=== PATIENT | male | born 1990 | race Caucasian/White ===

== ENCOUNTER 2018-04-11 09:59 | Emergency (ER) | payer OTHER, SELFPAY ==
[2018-04-11 10:08] VITALS: BP 147/93; PULSE 76; RESP 16; TEMP 36.8; O2SAT 98; BMI 31.1
--- NOTE | 2018-04-11 10:22 | DI.RAD.S_ITS ---
PROCEDURE: XR CHEST 1V INDICATIONS: chest pain TECHNIQUE: One view of the chest was acquired. COMPARISON: None. FINDINGS: Surgical changes and devices: None. Lungs and pleura: No pleural effusions or pneumothorax. Lungs are clear. Mediastinum: Mediastinal contours appear normal. Heart size is normal. Bones and chest wall: No suspicious bony lesions. Overlying soft tissues appear unremarkable. IMPRESSION: Portable chest within normal limits. Dictated by: Nato Villarreal M.D. on 04/11/2018 at 9:32 Approved by: Nato Villarreal M.D. on 04/11/2018 at 9:32
--- NOTE | 2018-04-11 10:26 | ED_ITS ---
HPI - Chest Pain General Chief Complaint: Chest Pain Stated Complaint: Chest Pain Time Seen by Provider: 04/11/18 10:10 Source: patient Mode of arrival: ambulatory Limitations: no limitations History of Present Illness HPI narrative: Patient is a 28-year-old male presents with left-sided chest pain. His is been ongoing for about the last 5 days. He actually started running and exercising more. When he is running and hiking he does not feel that pain. He denies any shortness of breath or heart palpitations. He does have a history of AFib from drinking. He has not had that in a long time. His had less tight pain woke him from his sleep. He is current lead chest pain- free. Recently diagnosed with celiac disease MD complaint: chest pain Related Data Allergies Allergy/AdvReac Type Severity Reaction Status Date / Time No Known Drug Allergies Allergy Verified 04/11/18 10:08 Review of Systems Review of Systems GENERAL: Denies chills, fatigue, malaise, fever, sweats, travel HEENT: Denies sinus pain, ear pain, sore throat, difficulty swallowing, neck pain RESPIRATORY: Denies dyspnea, cough, wheezing, hemoptysis, sputum. CARDIOVASCULAR: See HPI GASTROINTESTINAL: Denies nausea, vomiting, abdominal pain, diarrhea, constipation, melena. : Denies dysuria, frequency, incontinence, hematuria, urinary retention, flank pain. MUSCULOSKELETAL: Denies weakness, joint pain, or bony pain SKIN: No rash, no erythema, no pruritus NEUROLOGIC: Denies weakness, dizziness, headache, numbness, change in speech, confusion PSYCHIATRIC: No concerning psychosocial issues. 12 point review of systems is negative except for those stated above and HPI PFSH Medical History Healthy adult (Acute) Paroxysmal atrial fibrillation (Acute) Exam Initial Vital Signs Initial Vital Signs: Vital Signs Temperature 98.3 F 04/11/18 10:08 Pulse Rate 76 04/11/18 10:08 Respiratory Rate 16 04/11/18 10:08 Blood Pressure 147/93 H 04/11/18 10:08 Pulse Oximetry 98 04/11/18 10:08 GENERAL: Well-appearing slightly overweight male no acute distress HEENT: Head atraumatic,EOMI, pupils reactive, face symmetric, CARDIOVASCULAR: Regular rate and rhythm without murmurs, rubs or gallops. RESPIRATORY: Breath sounds equal bilaterally, no wheezes rales or rhonchi. ABDOMEN: Soft, nontender. Normoactive bowel sounds all 4 quadrants. No guarding or rebound. : No CVA tenderness EXTREMITIES: Normal range of motion, no clubbing or edema. Neurovascularly intact NEUROLOGICAL: Alert and oriented x4.Normal gait and speech. Cranial nerves II through XII grossly intact. SKIN: Warm, dry, no laceration, no petechiae, no rashes or lesions. Scores HEART Score Heart Score history: Slightly Suspicious Heart Score EKG: Normal Heart Score Age: < 45 years old Heart Score risk factors: No known risk factors Heart Score troponin: < or = to normal limit Heart Score Total: 0 Course Orders Ordered: ED Orders 04/11/18 10:20 Complete Blood Count AUTO DIFF Stat Comprehensive Metabolic Panel Stat Lipase Stat Troponin & CK Cardiac Panel Stat 04/11/18 10:22 XR chest 1V Stat Discontinued Medications Aspirin (Aspirin Chew) 324 mg PO NOW ONE Stop: 04/11/18 10:23 Last Admin: 04/11/18 10:36 Dose: 324 mg Vital Signs - 8 hr 04/11/18 10:08 04/11/18 11:21 04/11/18 11:28 Temperature 98.3 F Pulse Rate 76 55 L 65 Respiratory Rate 16 20 20 Blood Pressure 147/93 H 138/81 Blood Pressure [Right Arm] 138/81 Pulse Oximetry 98 98 99 MDM - Chest Pain Lab Data Attestation: I reviewed the patient's lab results. Result diagrams: 04/11/18 10:20 04/11/18 10:20 Lab Results 04/11/18 04/11/18 Range/Units 10:20 10:20 WBC 5.9 (4.5-11.0) X10^3/uL RBC 5.04 (4.5-5.9) X10^6/uL Hgb 15.5 (13.5-17.5) g/dL Hct 43.4 (41-53) % MCV 86.1 (80-100) fL MCH 30.8 (26-34) PG MCHC 35.8 (30-36) % RDW 12.8 (11.6-14.8) % Plt Count 236 (150-400) X10^3/uL Neut % (Auto) 59.4 (50-75) % Lymph % (Auto) 29.0 (25-40) % Oliver % (Auto) 9.7 (3-14) % Eos % (Auto) 1.0 L (2-4) % Baso % (Auto) 0.9 (0-2) % Neut # (Auto) 3500 (8924-5823) /uL Sodium 142 (137-145) mmol/L Potassium 4.1 (3.4-5.1) mmol/L Chloride 102 (98-107) mmol/L Carbon Dioxide 28 (22-32) mmol/L BUN 18 (9-20) mg/dL Creatinine 0.90 (0.66-1.25) mg/dL Estimated GFR > 60.0 (>60) mL/min BUN/Creatinine Ratio 20.0 (6-22) Glucose 98 (70-100) mg/dL Calcium 9.6 (8.4-10.2) mg/dL Total Bilirubin 0.9 (0.2-1.3) mg/dL AST 23 (17-59) IU/L ALT 31 (21-72) IU/L Alkaline Phosphatase 34 L (38-126) U/L Total Creatine Kinase 70 (55-170) U/L CK-MB (CK-2) TNP CK-MB (CK-2) Rel Index TNP Troponin I < 0.012 (0.01-0.034) ng/mL Total Protein 7.5 (6.3-8.2) g/dL Albumin 4.6 (3.5-5.0) g/dL Globulin 2.9 (1.7-4.1) g/dL Albumin/Globulin Ratio 1.6 (1.0-2.8) Lipase 27 (23-300) U/L Imaging Data Chest x-ray: Radiologist's impression: PROCEDURE: XR CHEST 1V INDICATIONS: chest pain TECHNIQUE: One view of the chest was acquired. COMPARISON: None. FINDINGS: Surgical changes and devices: None. Lungs and pleura: No pleural effusions or pneumothorax. Lungs are clear. Mediastinum: Mediastinal contours appear normal. Heart size is normal. Bones and chest wall: No suspicious bony lesions. Overlying soft tissues appear unremarkable. IMPRESSION: Portable chest within normal limits. Dictated by: Nato Villarreal M.D. on 04/11/2018 at 9:32 ECG Data Attestation: I personally reviewed and interpreted this ECG as follows: Prior ECG tracings: not available for review Interpretation: Sinus rhythm rate 71 T-wave inversion noted in lead [address] changes Discharge Plan Departure Patient Disposition: Home Clinical Impression: Atypical chest pain Discharge Date/Time: 04/11/18 11:30 Interventions: ED Discharge Assessment Last Done: 04/11/18 11:28 Instructions: DI for Atypical Chest Pain Activity Restrictions/Additional Instructions: *You have been diagnosed with atypical chest pain *What to do: Blood work and x-ray within normal limits, if still having issues may require further testing such as stress testing with your primary care provider *Continue to take medications as directed *Follow up with your primary care provider in 2-3 days *Return to ER if you should have any new, worsening or concerning symptoms Referrals: Jacinta Montano ND [Primary Care Provider] -
[2018-04-11 10:31] LABS: Add Manual Diff / Slide Review NO; Basophils Percent Auto 0.9 % (0-2); Hematocrit 43.4 % (41-53); Hemoglobin 15.5 g/dL (13.5-17.5); Mean Corpuscular HGB Conc 35.8 % (30-36); Mean Corpuscular Hemoglobin 30.8 PG (26-34); Mean Corpuscular Volume 86.1 fL (80-100); Monocytes Percent Auto 9.7 % (3-14); Neutrophils Absolute Auto 3500 /uL (3000-5900); Neutrophils Percent Auto 59.4 % (50-75); Platelet Count 236 X10^3/uL (150-400); Red Blood Cell Count 5.04 X10^6/uL (4.5-5.9); Red Cell Distribution Width 12.8 % (11.6-14.8); White Blood Cell Count 5.9 X10^3/uL (4.5-11.0)
[2018-04-11] MEDS: ASPIRIN 81 MG TAB 324 MG PO (10:36)
[2018-04-11 10:45] LABS: Alanine Aminotransferase 31 IU/L (21-72); Albumin 4.6 g/dL (3.5-5.0); Albumin Globulin Ratio 1.6 (1.0-2.8); Alkaline Phosphatase 34 U/L (38-126); Aspartate Aminotransferase 23 IU/L (17-59); Bilirubin Total 0.9 mg/dL (0.2-1.3); Blood Urea Nitrogen 18 mg/dL (9-20); Calcium 9.6 mg/dL (8.4-10.2); Carbon Dioxide 28 mmol/L (22-32); Chloride 102 mmol/L (98-107); Creatine Kinase 70 U/L (55-170); Estimated Glomerular Filt Rate > 60.0 mL/min (>60); Globulin 2.9 g/dL (1.7-4.1); Glucose 98 mg/dL (70-100); HEMOLYSIS < 15 (0-50); Lipase 27 U/L (23-300); Potassium 4.1 mmol/L (3.4-5.1); Sodium 142 mmol/L (137-145); Total Protein 7.5 g/dL (6.3-8.2)
[2018-04-11 10:56] LABS: Troponin I < 0.012 ng/mL (0.01-0.034)
[2018-04-11 11:21] VITALS: BP 138/81; PULSE 55; RESP 20; O2SAT 98
[2018-04-11 11:28] VITALS: BP 138/81; PULSE 65; RESP 20; O2SAT 99
== END 2018-04-11 11:30 | disposition home or self-care (01) ==
PROVIDERS: Emergency Provider Emergency Medicine; PCP Naturopath
DX: R07.89 Other chest pain (principal)
CPT/HCPCS: 71045; 80053; 82550; 83690; 84484; 85025; 93005; 99282; 99285

== ENCOUNTER 2018-10-18 19:27 | Emergency (ER) | payer OTHER, MEDICAID, SELFPAY ==
[2018-10-18 19:30] VITALS: BP 154/93; PULSE 88; RESP 18; TEMP 36.7; O2SAT 96; BMI 31.4
--- NOTE | 2018-10-18 19:49 | DI.RAD.S_ITS ---
PROCEDURE: XR CHEST 1V INDICATIONS: chest pain TECHNIQUE: One view of the chest was acquired. COMPARISON: [facility], CR, XR CHEST 1V, 04/11/2018, 10:27. FINDINGS: Surgical changes and devices: None. Lungs and pleura: There is mild prominence of pulmonary vasculature. There are mild bilateral perihilar and bibasilar linear opacities consistent with atelectasis. No focal pulmonary consolidations are identified. No pleural effusions or pneumothorax. Mediastinum: Mediastinal contours appear normal. Heart size is normal. Bones and chest wall: No suspicious bony lesions. Overlying soft tissues appear unremarkable. IMPRESSION: Mild perihilar and bibasilar atelectasis. No focal pulmonary consolidations consistent with pneumonia. Dictated by: Laron Cardenas M.D. on 10/18/2018 at 23:08 Approved by: Laron Cardenas M.D. on 10/18/2018 at 23:11
--- NOTE | 2018-10-18 19:53 | PC.NURSE ---
Pt reports start of tingling pain starting in left wrist. A few days ago, increased to right arm. reports pain/numbness lasts about a minute but happens multiple times throughout each days. Denies any weakness in bilateral arms/hands.
[2018-10-18 19:58] LABS: Add Manual Diff / Slide Review NO; Basophils Absolute Auto 100 /uL (0-100); Basophils Percent Auto 0.8 % (0-2); Eosinophils Absolute Auto 100 /uL (0-450); Eosinophils Percent Auto 1.1 % (2-4); Hemoglobin 14.8 g/dL (13.5-17.5); Lymphocytes Absolute Auto 2200 /uL (1100-4500); Lymphocytes Percent Auto 31.4 % (25-40); Mean Corpuscular HGB Conc 35.2 % (30-36); Mean Corpuscular Hemoglobin 30.4 PG (26-34); Mean Corpuscular Volume 86.4 fL (80-100); Monocytes Absolute Auto 800 /uL (0-900); Monocytes Percent Auto 10.9 % (3-14); Neutrophils Absolute Auto 4000 /uL (1500-7000); Neutrophils Percent Auto 55.8 % (50-75); Platelet Count 269 X10^3/uL (150-400); Red Blood Cell Count 4.86 X10^6/uL (4.5-5.9); Red Cell Distribution Width 12.4 % (11.6-14.8); White Blood Cell Count 7.1 X10^3/uL (4.5-11.0)
[2018-10-18 20:00] VITALS: BP 130/90; PULSE 64; RESP 22; O2SAT 97
--- NOTE | 2018-10-18 20:00 | ED_ITS ---
HPI - Chest Pain General Chief Complaint: Chest Pain Stated Complaint: CHEST PAIN NUMBNESS OF ARMS Time Seen by Provider: 10/18/18 19:34 Source: patient Mode of arrival: ambulatory Limitations: no limitations History of Present Illness HPI narrative: Patient is a 28-year-old male presents left-sided chest pain. He has a really been off and on for last 6 months. It is typically in 1 spot not reproducible with movement or palpation. It comes and lasts for few seconds. He has intermittently started having pain in both arms from his elbows down to his wrist. Today his left 1 was worse than normal. 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 However he said the pain from elbow down to his wrist was worse today and he was having chest discomfort so decided to come and get checked out. He states he does have a history of holiday heart he was cardioverted when he was 18 and no problem since then. He also was recently diagnosed with celiac disease and has completely cut out gluten. He says those symptoms have overall gone away. MD complaint: chest pain Duration: intermittent Onset: during rest and during exertion Pain location: left chest Severity: mild Related Data Allergies Allergy/AdvReac Type Severity Reaction Status Date / Time No Known Drug Allergies Allergy Verified 04/16/18 14:26 Review of Systems Review of Systems GENERAL: Denies chills, fatigue, malaise, fever, sweats, travel HEENT: Denies sinus pain, ear pain, sore throat, difficulty swallowing, neck pain RESPIRATORY: Denies dyspnea, cough, wheezing, hemoptysis, sputum. CARDIOVASCULAR: See HPI GASTROINTESTINAL: Denies nausea, vomiting, abdominal pain, diarrhea, constipation, melena. : Denies dysuria, frequency, incontinence, hematuria, urinary retention, flank pain. MUSCULOSKELETAL: Denies weakness, joint pain, or bony pain SKIN: No rash, no erythema, no pruritus NEUROLOGIC: Denies weakness, dizziness, headache, numbness, change in speech, confusion PSYCHIATRIC: No concerning psychosocial issues. 12 point review of systems is negative except for those stated above and HPI [facility] Medical History Healthy adult (Acute) Paroxysmal atrial fibrillation (Acute) Social History (System 04/16/18 @ 14:26 by Vale Lauren) Smoking Status: Never smoker Social History (Updated 10/18/18 @ 20:00 by Echo Li DO) marital status: Smoking Status: Never smoker alcohol intake: current substance use type: does not use Exam Initial Vital Signs Initial Vital Signs: Vital Signs Temperature 98.0 F 10/18/18 19:30 Pulse Rate 88 10/18/18 19:30 Respiratory Rate 18 10/18/18 19:30 Blood Pressure 154/93 H 10/18/18 19:30 Pulse Oximetry 96 10/18/18 19:30 GENERAL: Well-appearing, well-nourished and in no acute distress. HEENT: Head atraumatic,EOMI, pupils reactive, face symmetric CARDIOVASCULAR: Regular rate and rhythm without murmurs, rubs or gallops. RESPIRATORY: Breath sounds equal bilaterally, no wheezes rales or rhonchi. ABDOMEN: Soft, nontender. Normoactive bowel sounds all 4 quadrants. No guarding or rebound. : No CVA tenderness EXTREMITIES: Normal range of motion, no clubbing or edema. Neurovascularly intact NEUROLOGICAL: Alert and oriented x4.Normal gait and speech. Cranial nerves II through XII grossly intact. stitch burnisher strength equal bilaterally able to push him full equal. SKIN: Warm, dry, no laceration, no petechiae, no rashes or lesions. Scores HEART Score Heart Score history: Slightly Suspicious Heart Score EKG: Normal Heart Score Age: < 45 years old Heart Score risk factors: No known risk factors Heart Score troponin: < or = to normal limit Heart Score Total: 0 PERC Score Age greater than or equal to 50 years: No Heart rate greater than or equal to 100 bpm: No Room Air O2 Sat less than 95%: No Unilateral leg swelling: No Recent trauma or surgery: No Hemoptysis: No Prior PE or DVT: No Hormone Use: No Total PERC Score: 0 Wells' Criteria for PE Clinical signs and symptoms of PE: No PE is #1 Dx or equally likely: No Heart rate > 100: No Immobilization at least 3 days or surg in previous 4 weeks: No History of PE or DVT: No Hemoptysis: No Malignancy w/Treatment within 6 months or palliative: No Wells' PE Score total: 0 Course Orders Ordered: ED Orders 10/18/18 19:35 EKG-12 Lead Stat 10/18/18 19:45 Complete Blood Count AUTO DIFF Stat Comprehensive Metabolic Panel Stat D Dimer Stat Lipase Stat Troponin & CK Cardiac Panel Stat 10/18/18 19:49 XR chest 1V Stat Discontinued Medications Ketorolac Tromethamine (Toradol) 30 mg IV NOW ONE Stop: 10/18/18 19:50 Last Admin: 10/18/18 20:02 Dose: 30 mg Vital Signs - 8 hr 10/18/18 20:00 10/18/18 20:30 10/18/18 21:09 Pulse Rate 64 71 70 Respiratory Rate 22 15 17 Blood Pressure 121/78 Blood Pressure [Left Arm] 130/90 128/81 Pulse Oximetry 97 96 96 MDM - Chest Pain Lab Data Attestation: I reviewed the patient's lab results. Result diagrams: 10/18/18 19:45 10/18/18 19:45 Lab Results 10/18/18 10/18/18 10/18/18 Range/Units 19:45 19:45 19:45 WBC 7.1 (4.5-11.0) X10^3/uL RBC 4.86 (4.5-5.9) X10^6/uL Hgb 14.8 (13.5-17.5) g/dL Hct 42.0 (41-53) % MCV 86.4 (80-100) fL MCH 30.4 (26-34) PG MCHC 35.2 (30-36) % RDW 12.4 (11.6-14.8) % Plt Count 269 (150-400) X10^3/uL Neut % (Auto) 55.8 (50-75) % Lymph % (Auto) 31.4 (25-40) % Chase % (Auto) 10.9 (3-14) % Eos % (Auto) 1.1 L (2-4) % Baso % (Auto) 0.8 (0-2) % Neut # (Auto) 4000 (0288-2661) /uL Lymph # (Auto) 2200 (5432-7237) /uL Chase # (Auto) 800 (0-900) /uL Eos # (Auto) 100 (0-450) /uL Baso # (Auto) 100 (0-100) /uL D-Dimer < 200 (<230) ng/mL Sodium 138 (137-145) mmol/L Potassium 3.7 (3.4-5.1) mmol/L Chloride 102 (98-107) mmol/L Carbon Dioxide 25 (22-32) mmol/L BUN 18 (9-20) mg/dL Creatinine 0.90 (0.66-1.25) mg/dL Estimated GFR > 60.0 (>60) mL/min BUN/Creatinine Ratio 20.0 (6-22) Glucose 116 H (70-100) mg/dL Calcium 9.4 (8.4-10.2) mg/dL Total Bilirubin 0.6 (0.2-1.3) mg/dL AST 26 (17-59) IU/L ALT 41 (21-72) IU/L Alkaline Phosphatase 43 (38-126) U/L Total Creatine Kinase 217 H (55-170) U/L CK-MB (CK-2) < 0.22 (<2.37) ng/mL CK-MB (CK-2) Rel Index 0.1 L (1.5-5.0) % Troponin I < 0.012 (0.01-0.034) ng/mL Total Protein 7.4 (6.3-8.2) g/dL Albumin 4.6 (3.5-5.0) g/dL Globulin 2.8 (1.7-4.1) g/dL Albumin/Globulin Ratio 1.6 (1.0-2.8) Lipase 40 (23-300) U/L Urine Dip Bedside Urine Glucose Negative Bedside Urine Bilirubin - Negative Bedside Urine Ketone - Negative Urine Specific [place] 1.030 Bedside Urine Occult Blood - Negative Bedside Urine pH 6.0 Bedside Urine Protein - Negative Bedside Urine Urobilinogen - Negative Bedside Urine Nitrite - Negative Bedside Urine Leukocytes - Negative Esterase Imaging Data Chest x-ray: Radiologist's impression: PROCEDURE: XR CHEST 1V INDICATIONS: chest pain TECHNIQUE: One view of the chest was acquired. COMPARISON: [facility], CR, XR CHEST 1V, 04/11/2018, 10:27. FINDINGS: Surgical changes and devices: None. Lungs and pleura: There is mild prominence of pulmonary vasculature. There are mild bilateral perihilar and bibasilar linear opacities consistent with atelectasis. No focal pulmonary consolidations are identified. No pleural effusions or pneumothorax. Mediastinum: Mediastinal contours appear normal. Heart size is normal. Bones and chest wall: No suspicious bony lesions. Overlying soft tissues appear unremarkable. IMPRESSION: Mild perihilar and bibasilar atelectasis. No focal pulmonary consolidations consistent with pneumonia. Dictated by: Laron Cardenas M.D. on 10/18/2018 at 23:08 Approved by: Laron Cardenas M.D. on 10/18/2018 at 23:11 ECG Data Attestation: I personally reviewed and interpreted this ECG as follows: Prior ECG tracings: available for review Interpretation: Normal sinus rhythm rate [address] changes no T-wave inversions pure interval 152 QRS 90 MDM Narrative Medical decision making narrative: The patient is low risk for any cardiac problems. His pain and tingling on going from his elbows to his wrists bilaterally as not seem like stroke. Low risk for PE well. At this time patient can be discharged with outpatient follow-up. Discharge Plan Departure Patient Disposition: Home Clinical Impression: Atypical chest pain Discharge Date/Time: 10/18/18 21:13 Interventions: ED Discharge Assessment Last Done: 10/18/18 21:09 Instructions: DI for Atypical Chest Pain Activity Restrictions/Additional Instructions: *You have been diagnosed with atypical chest pain *What to do: At this time blood work is reassuring. Unlikely to be blood clot, unlikely to be cardiac however he used still may require further test here primary care provider *Continue to take medications as directed *Follow up with your primary care provider in 2-3 days *Return to ER if you should have increasing chest pain, shortness of breath or any new, worsening or concerning symptoms Referrals: Jacinta Montano ND [Primary Care Provider] -
[2018-10-18] MEDS: KETOROLAC 60 MG/2 ML VIAL 30 MG IV (20:02)
[2018-10-18 20:03] LABS: Alanine Aminotransferase 41 IU/L (21-72); Albumin 4.6 g/dL (3.5-5.0); Albumin Globulin Ratio 1.6 (1.0-2.8); Alkaline Phosphatase 43 U/L (38-126); Aspartate Aminotransferase 26 IU/L (17-59); Bilirubin Total 0.6 mg/dL (0.2-1.3); Blood Urea Nitrogen 18 mg/dL (9-20); Calcium 9.4 mg/dL (8.4-10.2); Carbon Dioxide 25 mmol/L (22-32); Chloride 102 mmol/L (98-107); Creatine Kinase 217 U/L (55-170); Estimated Glomerular Filt Rate > 60.0 mL/min (>60); Globulin 2.8 g/dL (1.7-4.1); Glucose 116 mg/dL (70-100); HEMOLYSIS < 15 (0-50); Lipase 40 U/L (23-300); Potassium 3.7 mmol/L (3.4-5.1); Sodium 138 mmol/L (137-145); Total Protein 7.4 g/dL (6.3-8.2)
[2018-10-18 20:04] LABS: D Dimer < 200 ng/mL (<230)
[2018-10-18 20:14] LABS: Troponin I < 0.012 ng/mL (0.01-0.034)
[2018-10-18 20:22] LABS: CKMB % Relative Index 0.1 % (1.5-5.0); Creatine Kinase MB < 0.22 ng/mL (<2.37)
[2018-10-18 20:30] VITALS: BP 128/81; PULSE 71; RESP 15; O2SAT 96
[2018-10-18 21:09] VITALS: BP 121/78; PULSE 70; RESP 17; O2SAT 96
== END 2018-10-18 21:13 | disposition home or self-care (01) ==
PROVIDERS: Emergency Provider Emergency Medicine; PCP Naturopath
DX: R07.89 Other chest pain (principal); R20.0 Anesthesia of skin; M79.602 Pain in left arm; M79.601 Pain in right arm
CPT/HCPCS: 36415; 36591; 71045; 80053; 81003; 82550; 82553; 83690; 84484; 85025; 85379; 93005; 96374; 99282; 99285; J1885

== ENCOUNTER → 2020-08-10 07:02 | Outpatient (CLI) | payer OTHER, MEDICAID, SELFPAY ==
[2020-08-10 08:00] LABS: Hemoglobin A1C% w Est Avg Glu 5.2 % (4.0-6.0)
[2020-08-10 08:05] LABS: Alanine Aminotransferase 41 IU/L (<50); Albumin 4.5 g/dL (3.5-5.0); Albumin Globulin Ratio 1.6 (1.0-2.8); Alkaline Phosphatase 33 U/L (38-126); Aspartate Aminotransferase 26 IU/L (17-59); BUN Creatinine Ratio 23.9 (6-22); Bilirubin Total 0.6 mg/dL (0.2-1.3); Blood Urea Nitrogen 22 mg/dL (9-20); Calcium 8.9 mg/dL (8.4-10.2); Carbon Dioxide 29 mmol/L (22-32); Chloride 103 mmol/L (98-107); Cholesterol 160 mg/dL (140-199); Estimated Glomerular Filt Rate > 60.0 mL/min (>60); Globulin 2.9 g/dL (1.7-4.1); Glucose 103 mg/dL (70-100); HDL Cholesterol 35 mg/dL (40-60); HEMOLYSIS < 15 (0-50); LDL Cholesterol Calculated 91 mg/dL (<100); Potassium 4.4 mmol/L (3.4-5.1); Sodium 137 mmol/L (137-145); Total Protein 7.4 g/dL (6.3-8.2); Triglycerides 168 mg/dL (35-150)
[2020-08-10 09:07] LABS: TSH w/ Reflex to FT4 1.08 uIU/mL (0.47-4.68)
== END ==
PROVIDERS: PCP Family Medicine; Referring Provider Family Medicine; Visit Provider Family Medicine
DX: I10 Essential (primary) hypertension (principal); R07.9 Chest pain, unspecified; Z13.1 Encounter for screening for diabetes mellitus; Z13.220 Encounter for screening for lipoid disorders; Z13.29 Encounter for screening for other suspected endocrine disorder; Z76.89 Persons encountering health services in other specified circumstances
CPT/HCPCS: 36415; 80053; 80061; 83036; 84443

== ENCOUNTER → 2020-09-13 11:57 | Outpatient (CLI) | payer OTHER, MEDICAID, SELFPAY ==
[2020-09-13 14:09] LABS: COVID19 -Nasal RAPID Negative (Negative)
== END ==
PROVIDERS: PCP Family Medicine; Visit Provider Nurse Practitioner
DX: Z01.812 Encounter for preprocedural laboratory examination (principal); Z20.822 Contact with and (suspected) exposure to COVID-19
CPT/HCPCS: 87635

== ENCOUNTER → 2020-09-14 08:11 | Outpatient (CLI) | payer OTHER, MEDICAID, SELFPAY ==
--- NOTE | 2020-09-14 09:06 | PM.TREADMILL ---
Cardiac Stress Test Report Referral & Results Date Patient Seen: 09/14/20 Time Patient Seen: 08:45 Requesting provider: Claude Browning Indication: Chest discomfort Rest ECG: Normal rate. No ST deviations. Frequent PAC/PVC Procedure Note: Today following both written and verbal informed consent, the patient was exercised according to a standard [facility] protocol. The patient exercised for a total of 10 minutes 16 seconds achieving a maximum heart rate of 168. Patient's maximum systolic blood pressure was 162. This was an estimated 12.8 METs. Normal hemodynamic response to exercise. Mild exercise impairment, but lower extremity cramping limited performance (BUCKY +20% on active scale). Frequent PACs/PVC at rest, but frequency decreased with exertion. Abnormal beats were markedly more frequent at rest after exercise with abnormal beats occupying every 4th to 5th beat. No other EKG changes. No signs or symptoms of angina. Presenting symptom not reproduced on exercise. Impression: Low probability for ischemia. Substantially arrhythmia, but unlikely to be responsible for the patient's current complaint. Consider outpatient paymaster of purses if further workup is clinically suggested. Please note: Actual ECG tracings can be found in the PACS system.
== END ==
PROVIDERS: PCP Family Medicine; Referring Provider Family Medicine; Visit Provider Family Medicine
DX: R07.89 Other chest pain (principal); I48.0 Paroxysmal atrial fibrillation; I10 Essential (primary) hypertension
CPT/HCPCS: 93016; 93017; 93018

== ENCOUNTER → 2020-11-10 07:33 | Outpatient (CLI) | payer OTHER, MEDICAID, SELFPAY ==
[2020-11-10] MEDS: COVID-19 VACC #1, MRNA(MOD) 100 MCG/0.5 ML VIAL IM (07:41)
== END ==
PROVIDERS: PCP Family Medicine; Visit Provider Internal Medicine
DX: Z23 Encounter for immunization (principal)
CPT/HCPCS: 0011A; 91301

== ENCOUNTER → 2020-12-08 07:33 | Outpatient (CLI) | payer OTHER, SELFPAY ==
[2020-12-08] MEDS: COVID-19 VACC #2, MRNA(MOD) 100 MCG/0.5 ML VIAL IM (07:51)
== END ==
PROVIDERS: PCP Family Medicine; Visit Provider Internal Medicine
DX: Z23 Encounter for immunization (principal)
CPT/HCPCS: 0012A; 91301

== ENCOUNTER → 2021-04-20 11:15 | Outpatient (CLI) | payer OTHER, SELFPAY ==
--- NOTE | 2021-04-20 11:16 | DI.RAD.S_ITS ---
PROCEDURE: FL BARIUM SWALLOW W AIR COMPARISON: None. INDICATIONS: Progressive reflux symptoms FINDINGS: Gas crystals followed by thick barium were administered to the patient orally. Multiple spot images of the esophagus were performed. There is normal mucosa with no intrinsic or extrinsic mass. Normal peristalsis is seen. No gastroesophageal reflux is seen despite provocative maneuvers. The patient was able to swallow a barium pill without difficulty. IMPRESSION: Normal barium swallow. Dictated by: Elmer Flower M.D. on 04/20/2021 at 12:29 Approved by: Elmer Flower M.D. on 04/22/2021 at 13:10
== END ==
PROVIDERS: PCP Family Medicine; Referring Provider Family Medicine; Visit Provider Family Medicine
DX: K21.9 Gastro-esophageal reflux disease without esophagitis (principal)
CPT/HCPCS: 74221

== ENCOUNTER → 2021-04-22 16:14 | Outpatient (CLI) | payer OTHER, SELFPAY ==
--- NOTE | 2021-04-22 16:15 | DI.RAD.S_ITS ---
PROCEDURE: XR CHEST 2V INDICATIONS: Chest pain, exposure to asbestos TECHNIQUE: 2 views of the chest were acquired. COMPARISON: None. FINDINGS: Surgical changes and devices: None. Lungs and pleura: Lungs are clear. No pleural effusions or pneumothorax. Mediastinum: Mediastinal contours are normal. Heart size is normal. Bones and chest wall: No suspicious bony abnormalities. Soft tissues appear unremarkable. IMPRESSION: No acute cardiopulmonary process demonstrated radiographically. Dictated by: Jett Benoit M.D. on 04/22/2021 at 16:43 Approved by: Jett Benoit M.D. on 04/22/2021 at 16:43
[2021-04-22 17:00] LABS: Alanine Aminotransferase 62 IU/L (<50); Albumin 4.7 g/dL (3.5-5.0); Albumin Globulin Ratio 1.6 (1.0-2.8); Alkaline Phosphatase 40 U/L (38-126); Aspartate Aminotransferase 32 IU/L (17-59); BUN Creatinine Ratio 21.5 (6-22); Bilirubin Total 0.4 mg/dL (0.2-1.3); Blood Urea Nitrogen 20 mg/dL (9-20); Calcium 9.3 mg/dL (8.4-10.2); Carbon Dioxide 27 mmol/L (22-32); Chloride 104 mmol/L (98-107); Estimated Glomerular Filt Rate > 60.0 mL/min (>60); Glucose 84 mg/dL (70-100); HEMOLYSIS < 15 (0-50); Potassium 4.2 mmol/L (3.4-5.1); Sodium 140 mmol/L (137-145); Total Protein 7.7 g/dL (6.3-8.2)
== END ==
PROVIDERS: PCP Family Medicine; Referring Provider Registered Nurse; Visit Provider Registered Nurse
DX: R07.9 Chest pain, unspecified (principal); I10 Essential (primary) hypertension; Z77.090 Contact with and (suspected) exposure to asbestos
CPT/HCPCS: 36415; 71046; 80053

== ENCOUNTER → 2021-06-16 16:07 | Outpatient (CLI) | payer OTHER, SELFPAY ==
[2021-06-16 18:06] LABS: Adenovirus F 40/41 Not Detected (Not Detect); Astrovirus Not Detected (Not Detect); Campylobacter Not Detected (Not Detect); Clostridium difficile toxin AB Not Detected (Not Detect); Cryptosporidium Not Detected (Not Detect); Cyclospora cayetanensis Not Detected (Not Detect); Entamoeba histolytica Not Detected (Not Detect); Enteroaggregative E.coli Not Detected (Not Detect); Enteropathogenic E.coli Not Detected (Not Detect); Enterotoxigenic E.coli It/st Not Detected (Not Detect); Giardia lamblia Not Detected (Not Detect); Norovirus GI/GII Not Detected (Not Detect); Plesiomonsa shigelloides Not Detected (Not Detect); Rotavirus A Not Detected (Not Detect); Salmonella Not Detected (Not Detect); Sapovirus Not Detected (Not Detect); Shiga-like toxin-prod E.coli Not Detected (Not Detect); Shigella/Enteroinvasive E.coli Not Detected (Not Detect); Vibrio Not Detected (Not Detect); Vibrio cholerae Not Detected (Not Detect); Yersinia enterocolitica Not Detected (Not Detect)
== END ==
PROVIDERS: PCP Family Medicine; Referring Provider Physician Assistant; Visit Provider Physician Assistant
DX: R19.7 Diarrhea, unspecified (principal)
CPT/HCPCS: 87507

== ENCOUNTER → 2021-09-20 14:21 | Outpatient (CLI) | payer OTHER, SELFPAY ==
[2021-09-20 16:25] LABS: COVID19 -Nasal RAPID Negative (Negative)
== END ==
PROVIDERS: PCP Family Medicine; Visit Provider Physician Assistant
DX: Z20.822 Contact with and (suspected) exposure to COVID-19 (principal)
CPT/HCPCS: 87635

== ENCOUNTER → 2021-12-15 15:50 | Outpatient (CLI) | payer OTHER, SELFPAY ==
--- NOTE | 2021-12-15 | DI.ECHO.S_ITS ---
[place] [facility]---------+ [facility] +---------+ : : [address] : : : : [id number] : : : : Phone: [phone]+ Echocardiogram Report + + :Name: GURPREET KATHLEEN Study Date: 12/15/2021 Height: 71 in : :[facility] ReadingLocation: Weight: 233 lb : : Gender: Male BSA: 2.3 m2 : :: 1990 Age: 31 yrs BP: 143/95 mmHg: :Reason For Study: Arrhythmia, PVCs : :Ordering Physician: BRYANT, : :KAIDEN Performed By: Paulie Herndon : :Referring: KAIDEN CHOWDHURY : + + Interpretation Summary 1) Normal left ventricular size, thickness, wall motion, and systolic function (EF 55-60%). 2) Normal right ventricular size and function. 3) No significant valvular abnormalities. 4) No prior Echo available for comparison. Procedure: A two-dimensional transthoracic echocardiogram with color flow and Doppler was performed. The study quality was technically adequate. There is no prior echocardiogram noted for this patient. Left Ventricle: The left ventricle is normal in size and wall thickness. Left ventricular systolic function is normal. The ejection fraction is estimated to be 55-60%. There are no focal wall motion abnormalities. Diastolic parameters suggest probable normal left ventricular diastolic function and normal filling pressures. Right Ventricle: The right ventricle is normal in size and function. Atria: Both atria are normal in size. The interatrial septum grossly appears intact with no obvious evidence for an atrial septal defect. Mitral Valve: The mitral valve is normal in structure and function. There is trace mitral regurgitation. Aortic Valve: The aortic valve is normal in structure and function. There is no aortic valve stenosis. No aortic regurgitation is present. Tricuspid Valve: The tricuspid valve is normal in structure and function. There is a trace or physiologic amount of tricuspid regurgitation. Pulmonary artery pressures cannot be estimated because of the lack of a measurable TR jet velocity. Pulmonic Valve: The pulmonic valve is normal in structure and function. There is no pulmonic valvular regurgitation. Great Vessels: The aortic root is normal size. The dimensions of the ascending aorta are normal. The IVC is of normal diameter and collapses greater than 50% with a sniff. This suggests a low right atrial pressure of 3 mm Hg. Pericardium/ Pleura There is no pericardial effusion. There is no pleural effusion. MMode/2D Measurements & Calculations LVIDd: 5.4 cm LVOT diam: 2.6 cm LVIDs: 3.8 cm Ao root diam: 3.8 cm FS: 29.6 % asc Aorta Diam: 3.3 cm IVSd: 1.1 cm LVPWd: 0.90 cm LV smalls. diameter/BSA (cm/m^2): 2.4 LV sys. diameter/BSA (cm/m^2): 1.7 LA dimension: 3.5 cm RA long axis: 5.3 cm LA A2 area: 18.4 cm2 LA A4 area: 16.3 cm2 LA length (vol): 5.1 cm LA vol: 50.2 ml LA vol index: 22.3 ml/m2 TAPSE_phl: 2.4 cm Doppler Measurements & Calculations Ao V2 max: 100.0 cm/sec LVOT Max Rufino: 84.2 cm/sec Ao V2 mean: 73.6 cm/sec LV V1 max P.8 mmHg Ao max P.0 mmHg LV V1 VTI: 16.7 cm Ao mean P.0 mmHg PATY(I,D): 4.4 cm2 Ao V2 VTI: 20.0 cm PATY(V,D): 4.5 cm2 sev ratio: 0.83 PATY indexed to BSA (cm^2/m^2): 2.0 MV E max rufino: 91.7 cm/sec SV(LVOT): 88.7 ml MV A max rufino: 54.0 cm/sec MV E/A: 1.7 Med Peak E' Rufino: 9.7 cm/sec E/E' med: 9.5 Lat Peak E' Rufino: 11.4 cm/sec E/E' lat: 8.0 E/e' average: 8.8 MV dec time: 0.21 sec AV VR_phl: 0.84 MV P1/2t-pr_phl: 62.0 msec PATY(VTI)/BSA_phl: 2.0 Reading Physician:07:00 PM
== END ==
PROVIDERS: PCP Family Medicine; Referring Provider Internal Medicine Cardiovascular Disease; Visit Provider Internal Medicine Cardiovascular Disease
DX: I49.3 Ventricular premature depolarization (principal)
CPT/HCPCS: 93306

== ENCOUNTER → 2022-04-13 09:41 | Outpatient (CLI) | payer OTHER, SELFPAY | PROVIDERS: PCP Family Medicine; Visit Provider Nurse Practitioner Family | DX: J02.9 Acute pharyngitis, unspecified (principal) | CPT/HCPCS: 87070 ==

== ENCOUNTER 2023-04-28 06:49 | Emergency (ER) | payer OTHER, SELFPAY ==
[2023-04-28 06:55] VITALS: BP 163/102; PULSE 80; RESP 16; TEMP 36.4; O2SAT 96; BMI 32.5
[2023-04-28] MEDS: LIDOCAINE 1% (PF) 5 ML INJ (07:18)
[2023-04-28 07:59] VITALS: BP 146/101; PULSE 59; RESP 18; O2SAT 97
--- NOTE | 2023-04-28 08:11 | ED.WOUNDLAC ---
HPI - Wound/Laceration General Chief Complaint: Wound/Laceration Stated Complaint: laceration to pinky inbetween hand Time Seen by Provider: 04/28/23 06:53 Source: patient Mode of arrival: Ambulatory History of Present Illness HPI narrative: 33-year-old male nonsmoker with history of hypertension presents with a chief complaint of an accidental laceration to his right hand this morning. He states he was in his normal state of health and preparing breakfast when he reached for a glass bottle that dropped and reflexively reached out for it and cut his hand with a shard of glass. His laceration is at the base of his pinky finger and he has some bleeding which is controlled with pressure. He denies any numbness, tingling or weakness. His last tetanus was about 5 years ago. He is otherwise well and free of complaint Related Data Home Medications Medication Instructions Recorded Confirmed diltiazem HCl 60 mg 60 mg PO ONCE 08/29/21 02/15/23 capsule,extended release 12 hr Previous Rx's Medication Instructions Recorded omeprazole 20 mg capsule,delayed 20 mg PO BID #60 caps 03/23/21 release doxycycline hyclate 100 mg capsule 100 mg PO BID #14 caps 02/15/23 nebivolol 10 mg tablet 10 mg PO DAILY #30 tabs 04/28/23 Allergies Allergy/AdvReac Type Severity Reaction Status Date / Time Sulfa (Sulfonamide Allergy Unknown Childhood Verified 02/15/23 07:21 Antibiotics) Penicillins AdvReac Verified 02/15/23 07:21 Review of Systems Review of Systems Narrative: GENERAL: Denies chills, fatigue, malaise, fever, sweats. HEENT: Denies sinus pain, ear pain, sore throat, difficulty swallowing, dizziness. RESPIRATORY: Denies dyspnea, cough, wheezing, hemoptysis, sputum. CARDIOVASCULAR: Denies chest pain, palpitations, orthopnea, edema, GASTROINTESTINAL: Denies nausea, vomiting, abdominal pain, diarrhea, constipation, melena. : Denies dysuria, frequency, incontinence, hematuria, urinary retention. MUSCULOSKELETAL: See HPI SKIN: Denies rash, skin lesions, or other NEUROLOGIC: Denies weakness, headache, numbness, change in speech, confusion, seizures, incoordination. PSYCHIATRIC: No concerning psychosocial issues. 12 point review of systems is negative except for those stated above Patient History Medical History Sore throat Diarrhea Back pain Abnormal EKG GERD (gastroesophageal reflux disease) Chest pain at rest Hypertriglyceridemia Hypertension Chest pain at rest Healthy adult Paroxysmal atrial fibrillation Surgical History Anesthesia History of cardioversion History of nasal surgery History of repair of ACL Family History Father Hypertension Mother History of heart disease Hyperlipidemia Stroke Mental health problem Social History marital status: Smoking Status: Never smoker alcohol intake: current (2-3 drinks per week ) substance use type: does not use Smoking Status: Never smoker alcohol intake frequency: a few times a week Substance Use Type: does not use Exam Narrative Exam Narrative: GEN: AOx3 and in mild distress EYES: Pupils are equal, round, and reactive to light and accommodation. Extraoccular muscles are intact bilaterally. There is no subconjunctival hemorrhage or exudate. CHEST: Lungs are clear to auscultation bilaterally and free of wheezes, rales, or rhonchi. Heart rate is regular rhythm, there are no murmurs, clicks, rubs, or gallops. There is no chest wall tenderness. ABD: Abdomen is soft and nontender. There is no guarding or rebound. Bowel sounds are normal in all 4 quadrants. There is no mass or organomegaly. EXT: 1.0 cm laceration on the volar surface of the 5th finger on the right hand overlying the metacarpophalangeal joint. Bleeding is well controlled, no obvious foreign body. It is viewed in a bloodless field and there is no evidence of obvious tendon laceration. Full painless ROM of all extremities with no loss of sensation or strength. SKIN: Warm, pink, and dry. No erythema or rash Initial Vital Signs Initial Vital Signs: Vital Signs Temperature 97.6 F 04/28/23 06:55 Pulse Rate 80 04/28/23 06:55 Respiratory Rate 16 04/28/23 06:55 Blood Pressure 163/102 H 04/28/23 06:55 Pulse Oximetry 96 04/28/23 06:55 Oxygen Delivery Method Room Air 04/28/23 06:55 Procedures Laceration Repair Laceration 1: Site: hand Side (If applicable): right Size (cm): 1.0 Description: stellate and clean Depth: involves muscle layer Local Anesthetic: lidocaine 2% Amount of anesthesia used (mL): 4 Pre-repair: wound explored, irrigated extensively, deep structures intact and cleansed with chlorhexadine Skin layer closed with: nylon Skin layer suture size: 4-0 Number of sutures: 4 Technique: simple, interrupted Course Orders Ordered: Discontinued Medications Lidocaine HCl (Lidocaine 2% Inj Mdv 20ml) 20 ml IV NOW ONE Stop: 04/28/23 06:54 Last Admin: 04/28/23 07:17 Dose: Not Given Documented By: LIDIA Lidocaine HCl (Lidocaine 1% (Pf) 5 Ml) 5 ml INJ NOW ONE Stop: 04/28/23 07:16 Last Admin: 04/28/23 07:18 Dose: 5 ml Documented By: LIDIA Vital Signs Vital signs: Vital Signs - 8 hr 04/28/23 06:55 04/28/23 07:59 Temperature 97.6 F Pulse Rate 80 59 L Respiratory Rate 16 18 Blood Pressure 163/102 H 146/101 H Pulse Oximetry 96 97 Oxygen Delivery Method Room Air Room Air MDM - Wound/Laceration MDM Narrative Medical decision making narrative: [33] year old patient presents with laceration Multiple etiologies for patient's symptoms considered including, but not limited to: [Simple laceration versus tendon involvement versus other] Prior Charts reviewed in our EMR Primary Historian: patient Bleeding well controlled, wound viewed in a bloodless field and no evidence of tendon disruption noted, sutures placed, simple immobilization by nursing to prevent range of motion across the MCP Patient's symptoms improved over duration of stay with above-stated therapies. Findings and discharge diagnosis discussed with patient/family followed by verbalization of understanding. No obvious tendon involvement, given contact information for orthopedist nonetheless for completeness sake Return precautions discussed with patient/family whom verbalize understanding of diagnosis and plan Discharge Plan Departure Patient Disposition: Home Clinical Impression: Laceration of right hand Instructions: DI for Laceration Repair Activity Restrictions/Additional Instructions: *You have been diagnosed with [right hand laceration] *What to do: *Please continue to take your regular medications as directed. [ x] New medication prescriptions sent to your pharmacy: [ [facility]] [ ] New medication written as a paper prescription [ ] No new medications given * Please keep the wound clean and dry to the best of your ability. Please monitor for signs of infection such as redness to the skin or increasing pain. Have the sutures/yoselin removed by your doctor in about 7 days. If you are unable to get into your doctor, we would be happy to remove the sutures/yoselin in that same timeframe. * as we discussed I have included contact information for orthopedist. You have full strength and range of motion of your pinky finger and I did not see any obvious involvement of the tendon though the cut is deep enough. It would be reasonable to follow up with them for completeness sake *Return to Emergency Department if you should have any new, worsening or concerning symptoms, such as [fever greater than 101 F, shaking chills, worsening pain, persistent vomiting or other bothersome symptoms] Prescriptions: New nebivolol 10 mg tablet 10 mg PO DAILY Qty: 30 0RF No Action diltiazem HCl 60 mg capsule,extended release 12 hr 60 mg PO ONCE doxycycline hyclate 100 mg capsule 100 mg PO BID Qty: 14 0RF omeprazole 20 mg capsule,delayed release(DR/EC) 20 mg PO BID Qty: 60 2RF Rx Instructions: Initially twice a day for the 1st month decrease to 1 per day month two Referrals: Claude Browning DO [Primary Care Provider] - Domenic Mohr MD [Physician] - Stand Alone Forms: Patient Portal/API
== END 2023-04-28 08:00 | disposition home or self-care (01) ==
PROVIDERS: Emergency Provider Emergency Medicine; PCP Family Medicine
DX: S61.411A Laceration without foreign body of right hand, initial encounter (principal); W25.XXXA Contact with sharp glass, initial encounter
CPT/HCPCS: 12041; 99282; 99283

== ENCOUNTER 2024-03-27 07:43 | Emergency (ER) | payer BC, SELFPAY ==
[2024-03-27] VITALS (9 sets, daily range): BP systolic 125–144; BP diastolic 74–94; PULSE 51–83; RESP 14–18; TEMP 36.7; O2SAT 95–99; BMI 34.4
[2024-03-27 08:24] LABS: Hematocrit 44.7 % (41-53); Hemoglobin 15.7 g/dL (13.5-17.5); Mean Corpuscular HGB Conc 35.1 % (30-36); Mean Corpuscular Hemoglobin 30.9 PG (26-34); Mean Corpuscular Volume 88.1 fL (80-100); Platelet Count 239 X10^3/uL (150-400); Red Blood Cell Count 5.08 X10^6/uL (4.5-5.9); Red Cell Distribution Width 12.9 % (11.6-14.8); White Blood Cell Count 14.7 X10^3/uL (4.5-11.0)
[2024-03-27 08:34] LABS: Alanine Aminotransferase 37 IU/L (<50); Albumin 4.4 g/dL (3.5-5.0); Albumin Globulin Ratio 1.4 (1.0-2.8); Alkaline Phosphatase 38 U/L (38-126); Aspartate Aminotransferase 27 IU/L (17-59); BUN Creatinine Ratio 22.4 (6-22); Bilirubin Total 0.9 mg/dL (0.2-1.3); Blood Urea Nitrogen 19 mg/dL (9-20); Calcium 9.3 mg/dL (8.4-10.2); Carbon Dioxide 25 mmol/L (22-32); Chloride 102 mmol/L (98-107); Estimated Glomerular Filt Rate > 60 mL/min (>60); Globulin 3.1 g/dL (1.7-4.1); Glucose 110 mg/dL (70-100); HEMOLYSIS < 15 (0-50); Lipase 28 U/L (23-300); Potassium 4.3 mmol/L (3.4-5.1); Sodium 135 mmol/L (137-145); Total Protein 7.5 g/dL (6.3-8.2)
[2024-03-27 08:37] LABS: Add Manual Diff / Slide Review YES
--- NOTE | 2024-03-27 08:46 | ED_ITS ---
HPI - Abdominal Pain General Chief Complaint: Abdominal Pain Stated Complaint: Sharp R Side Abd Pain Time Seen by Provider: 03/27/24 08:34 Source: patient Mode of arrival: Family Vehicle History of Present Illness HPI narrative: Patient is a 34-year-old male history of celiac disease and PVCs, possible atrial fibrillation on diltiazem but not on anticoagulation, presenting today with right lower quadrant pain. He reports he was out fishing boat he saw someone threw up and got a little nauseous afterwards noted some periumbilical pain last night he had a salad and pain woke him in the middle of the night on the right side. He says with the celiac disease normally on the left side. He does have fluctuating bowel habits of soft and hard which is normal for him. No fever or chills. He says he also is having some mild right flank pain nonradiating to his going. He has not had anything to eat this morning. Is having some discomfort. Related Data Home Medications Medication Instructions Recorded Confirmed diltiazem HCl 60 mg 60 mg PO ONCE 08/29/21 02/15/23 capsule,extended release 12 hr Previous Rx's Medication Instructions Recorded omeprazole 20 mg capsule,delayed 20 mg PO BID #60 caps 03/23/21 release doxycycline hyclate 100 mg capsule 100 mg PO BID #14 caps 02/15/23 nebivolol 10 mg tablet 10 mg PO DAILY #30 tabs 04/28/23 ciprofloxacin HCl 500 mg tablet 500 mg PO BID #20 tabs 03/27/24 (Cipro) hydrocodone 5 mg-acetaminophen 325 1 tab PO Q6H PRN pain #10 tabs 03/27/24 mg tablet metronidazole 500 mg tablet 500 mg PO Q8H 10 days #30 tabs 03/27/24 ondansetron 4 mg disintegrating 4 mg PO Q8H PRN nausea and 03/27/24 tablet vomiting #10 tabs Allergies Allergy/AdvReac Type Severity Reaction Status Date / Time Sulfa (Sulfonamide Allergy Unknown Childhood Verified 03/27/24 07:59 Antibiotics) Penicillins AdvReac Verified 03/27/24 07:59 Patient History Medical History Sore throat Diarrhea Back pain Abnormal EKG GERD (gastroesophageal reflux disease) Chest pain at rest Hypertriglyceridemia Hypertension Chest pain at rest Healthy adult Paroxysmal atrial fibrillation Surgical History Anesthesia History of cardioversion History of nasal surgery History of repair of ACL Family History Father Hypertension Mother History of heart disease Hyperlipidemia Stroke Mental health problem Social History marital status: Smoking Status: Never smoker alcohol intake: current (2-3 drinks per week ) substance use type: does not use Smoking Status: Never smoker alcohol intake frequency: a few times a week Substance Use Type: marijuana Exam Initial Vital Signs Initial Vital Signs: Vital Signs Blood Pressure 144/94 H 03/27/24 07:48 GENERAL: Alert 34-year-old male appears uncomfortable and in no acute distress. HEENT: Head atraumatic,EOMI, pupils reactive, face symmetric, moist mucous membranes CARDIOVASCULAR: Regular rate and rhythm without murmurs, rubs or gallops. RESPIRATORY: Breath sounds equal bilaterally, no wheezes rales or rhonchi. ABDOMEN: Soft, right-sided tenderness mild periumbilical pain no left-sided tenderness normal bowel sounds : Minimal right CVA tenderness EXTREMITIES: Normal range of motion, no clubbing or edema. Neurovascularly intact NEUROLOGICAL: Alert and oriented x4.Normal gait and speech. SKIN: Warm, dry, no laceration, no petechiae, no rashes or lesions. Course Orders Ordered: ED Orders 03/27/24 08:07 Complete Blood Count AUTO DIFF Stat Comprehensive Metabolic Panel Stat Lipase Stat 03/27/24 08:46 CT abdomen pelvis w con Stat Discontinued Medications Ciprofloxacin (Ciprofloxacin 250 Mg Tablet) 500 mg PO NOW ONE Stop: 03/27/24 10:14 Last Admin: 03/27/24 11:02 Dose: 500 mg Documented By: POWER Acetaminophen (Ofirmev) 1,000 mg in 100 mls @ 400 mls/hr IV NOW ONE Stop: 03/27/24 09:00 Last Infusion: 03/27/24 09:41 Dose: Infused Documented By: Admin: 03/27/24 09:04 Dose: 400 mls/hr Documented By: POWER Metronidazole (Metronidazole 500 Mg Tablet) 500 mg PO NOW ONE Stop: 03/27/24 10:14 Last Admin: 03/27/24 11:02 Dose: 500 mg Documented By: POWER Ondansetron HCl (Ondansetron 4 Mg/2 Ml Inj) 4 mg IV NOW PRN PRN Reason: Nausea And Vomiting Ondansetron HCl (Ondansetron 4 Mg Odt) 4 mg PO NOW PRN PRN Reason: Nausea And Vomiting Vital Signs Vital signs: Vital Signs - 8 hr 03/27/24 07:48 03/27/24 07:49 03/27/24 07:54 Temperature 98.1 F Pulse Rate 83 76 Respiratory Rate 17 Blood Pressure 144/94 H 144/94 H Pulse Oximetry 95 95 Oxygen Delivery Method Room Air 03/27/24 09:03 03/27/24 09:04 03/27/24 09:04 Temperature Pulse Rate 53 L 60 Respiratory Rate 16 Blood Pressure 135/81 Pulse Oximetry 99 98 Oxygen Delivery Method Room Air 03/27/24 09:30 03/27/24 09:30 03/27/24 10:00 Temperature Pulse Rate 59 L Respiratory Rate 18 Blood Pressure 125/74 137/75 Pulse Oximetry 96 Oxygen Delivery Method 03/27/24 10:00 03/27/24 10:30 03/27/24 10:30 Temperature Pulse Rate 63 51 L Respiratory Rate Blood Pressure 130/83 Pulse Oximetry 97 98 Oxygen Delivery Method 03/27/24 11:00 03/27/24 11:00 Temperature Pulse Rate 57 L Respiratory Rate 14 Blood Pressure 144/86 H Pulse Oximetry 98 Oxygen Delivery Method Room Air MDM - Abdominal Pain Lab Data 03/27/24 08:07 03/27/24 08:07 Labs: Lab Results 03/27/24 Range/Units 08:07 WBC 14.7 H (4.5-11.0) X10^3/uL RBC 5.08 (4.5-5.9) X10^6/uL Hgb 15.7 (13.5-17.5) g/dL Hct 44.7 (41-53) % MCV 88.1 (80-100) fL MCH 30.9 (26-34) PG MCHC 35.1 (30-36) % RDW 12.9 (11.6-14.8) % Plt Count 239 (150-400) X10^3/uL Neut % (Auto) Not Reportable Lymph % (Auto) Not Reportable [place] % (Auto) Not Reportable Eos % (Auto) Not Reportable Baso % (Auto) Not Reportable Lymph # (Auto) Not Reportable [place] # (Auto) Not Reportable Baso # (Auto) Not Reportable Total Counted 100 Seg Neutrophils % 81.0 H (38-70) % Lymphocytes % (Manual) 9.0 L (25-45) % Monocytes % (Manual) 10.0 (2-11) % Neutrophils # (Manual) 61563 H (6069-4966) /uL RBC Morphology Normal morphology Sodium 135 L (137-145) mmol/L Potassium 4.3 (3.4-5.1) mmol/L Chloride 102 (98-107) mmol/L Carbon Dioxide 25 (22-32) mmol/L BUN 19 (9-20) mg/dL Creatinine 0.85 (0.66-1.25) mg/dL Estimated GFR > 60 (>60) mL/min BUN/Creatinine Ratio 22.4 H (6-22) Glucose 110 H (70-100) mg/dL Calcium 9.3 (8.4-10.2) mg/dL Total Bilirubin 0.9 (0.2-1.3) mg/dL AST 27 (17-59) IU/L ALT 37 (<50) IU/L Alkaline Phosphatase 38 (38-126) U/L Total Protein 7.5 (6.3-8.2) g/dL Albumin 4.4 (3.5-5.0) g/dL Globulin 3.1 (1.7-4.1) g/dL Albumin/Globulin Ratio 1.4 (1.0-2.8) Lipase 28 (23-300) U/L Point of care testing: Urine Dip Bedside Urine Glucose Negative Bedside Urine Bilirubin - Negative Bedside Urine Ketone - Negative Urine Specific [place] 1.015 Bedside Urine Occult Blood - Negative Bedside Urine pH 6.5 Bedside Urine Protein - Negative Bedside Urine Urobilinogen - Negative Bedside Urine Nitrite - Negative Bedside Urine Leukocytes - Negative Esterase Imaging Data CT scan - abdomen/pelvis: Radiologist's Impression: PROCEDURE: CT ABDOMEN PELVIS W CON INDICATIONS: right sided pain, appendicitis TECHNIQUE: After the administration of intravenous contrast, axial sections acquired from the lung bases to the pubic symphysis. Coronal and sagittal reformats were performed. For radiation dose reduction, the following was used: automated exposure control, adjustment of mA and/or kV according to patient size. COMPARISON: None. FINDINGS: Image quality: Diagnostic. Abnormal dilated tubular structure in the right lower quadrant measures up to 1.2 cm with mild surrounding edema suspicious for acute appendicitis. 1 mm calcification suspected small distal appendix appendicoliths. No free gas no abnormal free fluid no loculated fluid collection or abscess. Mild degenerative changes at L5-S1 with disc space narrowing Lower Chest: No significant findings. ABDOMEN: Liver: No solid mass. Gallbladder: No radiopaque gallstones or wall thickening. Biliary ducts: No biliary dilation. Pancreas: No ductal dilation. Spleen: Size is within normal limits. Adrenal Glands: No adrenal nodules. Kidneys and Ureters: No hydronephrosis. No solid mass. No complex renal cystic lesion which requires follow up. Stomach and Bowel: Normal colonic caliber, without significant wall thickening. Ventral Wall: No significant ventral hernia. Abdominal Nodes: No retroperitoneal or mesenteric adenopathy by size criteria. Vessels: Aorta and inferior vena cava are normal in size. PELVIS: Pelvic Organs: Unremarkable. Bladder: No bladder wall thickening, accounting for underdistention. Pelvic Nodes: No enlarged lymph nodes. IMPRESSION: Right lower quadrant dilated tubular structure suspicious for acute appendicitis. Surgical consult and follow-up is needed Dictated by: Harshad Steen M.D. on 03/27/2024 at 9:22 MDM Narrative Medical decision making narrative: Patient 34-year-old male history of celiac disease presenting today with classic appendicitis history. Periumbilical pain radiating to and moving to his right lower quadrant. He is tender on exam without rebound no peritoneal signs. Blood Work has been reviewed he has leukocytosis of 14 without electrolyte abnormality EVELIO or pancreatitis. CT does confirm early acute appendicitis without appendicolith 09:40 Dr. Wills surgery updated patient's symptoms test results. States that patient is healthy without contraindications to an antibiotic trial but to give him the option of surgery. Recommended Cipro and Flagyl for antibiotic I have sat at bedside and discussed options benefits risks with patient and . Initially they were agreeable to antibiotics however after further thinking they thought that they might want to have surgery because now has a good time at work for him and they did not want to risk complication. Dr. Wills then notified reports that patient can likely have surgery tomorrow as an outpatient. [facility] are supposed to [facility] for [facility] instructions. He is dose of Cipro and Flagyl here in the ED along with prescription and pain medications. Discharge Plan Departure Patient Disposition: Home Clinical Impression: Acute appendicitis Instructions: DI for Appendicitis -- Adult Activity Restrictions/Additional Instructions: *You have been diagnosed with acute appendicitis *What to do: At this time I anticipate that you do well with antibiotics. You may call surgery office for follow-up and have elective appendectomy. Please stay hydrated may increase diet as tolerated *Continue to take medications as directed Cipro 500 mg twice a day for 10 days Flagyl 500 mg 3 times a day for 10 days [place] 1 tablet every 6 hours if needed for severe pain Motrin 600 mg every 6 hours for mild *Follow up with your primary care provider in 2-3 days or call [phone] Call [facility] *Return to ER if you should have increasing pain fever not tolerating antibiotics or any new, worsening or concerning symptoms CONTROLLED SUBSTANCE DISCHARGE (Narcotoic/benzodiazepine/Flexeril/Phenergan) 1. You have been prescribed narcotic medications, it does have acetaminophen/Tylenol/paracetamol in it, DO NOT TAKE MORE THAN 4,00mg in 24 hours of Tylenol. TRAMADOL DOES NOT CONTAIN TYLENOL 2. Please understand that we cannot provide further refills of narcotics, benzodiazepines or controlled substances through the ED and her pain management will need to be through your provider. 3. While on these medications you cannot drive or operate heavy machinery. 4. You cannot sign legal documents or perform any duties such as this. 5. As long as you're taking opiate pain medications he should also be taking a stool softener such as Colace, Dulcolax, MiraLAX or prune juice, to help avoid constipation. Prescriptions: New metronidazole 500 mg tablet 500 mg PO Q8H 10 Days Qty: 30 0RF ciprofloxacin HCl [Cipro] 500 mg tablet 500 mg PO BID Qty: 20 0RF hydrocodone-acetaminophen 5-325 mg tablet 1 tab PO Q6H PRN (Reason: pain) Qty: 10 0RF ondansetron 4 mg tablet,disintegrating 4 mg PO Q8H PRN (Reason: nausea and vomiting) Qty: 10 0RF No Action diltiazem HCl 60 mg capsule,extended release 12 hr 60 mg PO ONCE doxycycline hyclate 100 mg capsule 100 mg PO BID Qty: 14 0RF omeprazole 20 mg capsule,delayed release(DR/EC) 20 mg PO BID Qty: 60 2RF Rx Instructions: Initially twice a day for the 1st month decrease to 1 per day month two nebivolol 10 mg tablet 10 mg PO DAILY Qty: 30 0RF Referrals: Claude Browning DO [Primary Care Provider] - Stand Alone Forms: Patient Portal/API
[2024-03-27 08:49] LABS: Neutrophils Absolute Manual 11907 /uL (3000-5900); Total Cells Counted 100
[2024-03-27 08:50] LABS: RBC Morphology Normal Morphology
[2024-03-27] MEDS: ACETAMINOPHEN IV 1,000 MG/100 ML VIAL 400 MG IV (09:04)
[2024-03-27] MEDS: CIPROFLOXACIN 250 MG TABLET 500 MG PO (11:02)
[2024-03-27] MEDS: metroNIDAZOLE 500 MG TABLET PO (11:02)
== END 2024-03-27 11:20 | disposition home or self-care (01) ==
PROVIDERS: Emergency Provider Emergency Medicine; PCP Family Medicine
DX: K35.80 Unspecified acute appendicitis (principal)
CPT/HCPCS: 36415; 74177; 80053; 81003; 83690; 85007; 85025; 96365; 99284; J0136; Q9967

== ENCOUNTER 2024-03-28 11:40 | Day surgery (SDC) | payer BC, SELFPAY ==
[2024-03-28] VITALS (9 sets, daily range): BP systolic 119–142; BP diastolic 77–90; PULSE 61–71; RESP 14–22; TEMP 36.1–36.8; O2SAT 93–97; BMI 31.8
--- NOTE | 2024-03-28 | PATH_ITS ---
[facility] Accession Number: [id number] No. of containers..01 Tissue . 01 Material submitted: . appendix - APPENDIX . 01 Diagnosis: APPENDIX, APPENDECTOMY: Acute appendicitis and associated acute serositis. Negative for malignancy. MRV 04/02/2024 1105 Local . 01 Electronically signed: . Brady Santo MD, Pathologist NPI- [id number] . 01 Gross description: . Received in formalin with two patient identifiers and appendix, is a orellana, vermiform appendix, 7.6 x 0.7 cm, with a mesoappendix extending out to 1.4 cm. The serosa is orellana and slightly roughened with grossly dilated vasculature. The margin is inked blue, and the lumen is patent and contains red-brown, semi-solid material, and averages 0.2 cm in diameter. The larkin average 0.2 cm thick, and are waite-orellana with no perforation or lesions identified. Coffee Urn Attendant sections to include the margin, one-half of the bisected distal tip, and cross sections are submitted in A1. ([id number]) /MRV 04/01/2024 0858 Local . 01 Pathologist provided ICD-10: K35.80 . 01 CPT . 795985 Performed at: [address], [place], [place] [id number] MD Fei Brownlee MD Phone: [phone]
[2024-03-28] MEDS: LACTATED RINGERS 1,000 ML 84 ML IV (12:38)
--- NOTE | 2024-03-28 13:07 | PM.HP.1 ---
History of Present Illness History of Present Illness Date Patient Seen: 03/28/24 Time Patient Seen: 13:07 Chief complaint: SDC Narrative: Acute appendicitis treated with initially with antibiotics, Not a complete response after 24hrs. RLQ pain, worse with movement, sharp. CT scan confirms acute appendicitis. PENDING SALE TO [facility] Medical History Sore throat Diarrhea Back pain Abnormal EKG GERD (gastroesophageal reflux disease) Chest pain at rest Hypertriglyceridemia Hypertension Chest pain at rest Healthy adult Paroxysmal atrial fibrillation Surgical History Anesthesia History of cardioversion History of nasal surgery History of repair of ACL Family History Father Hypertension Mother History of heart disease Hyperlipidemia Stroke Mental health problem Social History marital status: household members: spouse Smoking Status: Never smoker alcohol intake: current substance use type: does not use Meds Home Medications and Allergies Home Medications Medication Instructions Recorded Confirmed Type omeprazole 20 mg capsule,delayed 20 mg PO BID #60 caps 03/23/21 02/15/23 Rx release diltiazem HCl 60 mg 60 mg PO ONCE 08/29/21 02/15/23 History capsule,extended release 12 hr doxycycline hyclate 100 mg capsule 100 mg PO BID #14 caps 02/15/23 02/15/23 Rx nebivolol 10 mg tablet 10 mg PO DAILY #30 tabs 04/28/23 03/28/24 Rx ciprofloxacin HCl 500 mg tablet 500 mg PO BID #20 tabs 03/27/24 03/28/24 Rx (Cipro) hydrocodone 5 mg-acetaminophen 325 1 tab PO Q6H PRN pain #10 tabs 03/27/24 Rx mg tablet metronidazole 500 mg tablet 500 mg PO Q8H 10 days #30 tabs 03/27/24 Rx ondansetron 4 mg disintegrating 4 mg PO Q8H PRN nausea and 03/27/24 Rx tablet vomiting #10 tabs nebivolol 10 mg tablet 10 mg PO DAILY 03/28/24 03/28/24 History Allergies Allergy/AdvReac Type Severity Reaction Status Date / Time Sulfa (Sulfonamide Allergy Unknown Childhood Verified 03/27/24 07:59 Antibiotics) Penicillins AdvReac Verified 03/27/24 07:59 Review of Systems Review of Systems ROS: Yes All systems reviewed with the patient and are negative except as otherwise documented Exam Vital Signs (past 8 hours): - 03/28/24 12:18 Temperature 97.2 F L Pulse Rate 63 Respiratory Rate 16 Blood Pressure 124/81 Pulse Oximetry 96 Oxygen Delivery Method Room Air Oxygen Delivery Method Room Air Const General: cooperative, healthy appearing and comfortable Nutritional Appearance: average body habitus [facility] Head: normocephalic and atraumatic Eyes Sclera: sclerae normal Neck Neck: trachea midline and No JVD Chest Chest: normal inspection of the chest Resp Effort & Inspection: normal respiratory effort and able to speak in complete sentences Cardio Rate: regular rate Rhythm: regular rhythm GI Palpation: soft and No tender (tenderness to palpation RLQ) Skin General: elasticity normal and turgor normal Neuro General: patient alert, patient awake and patient oriented x3 Cognition: normal cognition Psych Appearance: grossly normal Mental Status: mental status grossly normal Judgment: judgment good Assessment & Plan Assessment & Plan narrative: Acute appendicitis Laparoscopic appendectomy Time-Based Coding :: [TOTAL MINUTES] spent with patient and on the chart (including review of chart, obtaining history, exam, reviewing outside data, placing orders, documenting exam and treatment plan, and counseling patient) on [DATE].
--- NOTE | 2024-03-28 13:51 | SUR.OPER ---
Supine on padded OR bed, head on pillow, right arm secured on padded arm board at <90 degrees abduction, right arm padded and tucked, legs uncrossed, safety belt at thigh, tape over blanket over lower legs.
[2024-03-28] MEDS: BUPIVACAINE 0.25% (PF) 30 ML, EPINEPHrine 0.15 MG INJ (13:56)
--- NOTE | 2024-03-28 14:24 | PM.OP.1 ---
Operative Date/Time/Diagnoses Date of procedure: 03/28/24 Time of procedure: 14:25 Pre-op diagnosis: Acute appendicitis Post-op diagnosis: same Procedure & Clinicians Procedure: Laparoscopic appendectomy Same procedure as scheduled: Yes Indications: Acute appendicitis Surgeon: Lindsay Wills Anesthesia Type: General and Local Operative Notes Findings: Acute appendicitis, no rupture. Adhesive disease consistent with prior episode Closure Type: primary Specimen(s): other (Appendix) Estimated Blood Loss (mL): 15 Blood products transfused: none Procedure in detail: Preop diagnosis: Acute appendicitis Postop diagnosis: Same Operative procedure: Laparoscopic appendectomy Surgeon: Kayli Wills MD Findings: Acute appendicitis uncomplicated stage I Procedure: Patient placed in a supine position. Prepped and draped in sterile fashion to expose his abdomen. Infraumbilical port site was placed using open technique a 12 mm port. Insufflation began all other ports were placed under direct vision including a 5 mm port in the suprapubic area and a 5 mm port in the left lateral abdomen. Appendix was identified in a retro colic position. Taken down from his lateral attachments with sharp dissection electrocautery. There were adhesions from a prior episode of appendicitis and ruptured be taken down to display the appendix in its full formed. Appendiceal mesentery was taken down with electrocautery and excellent hemostasis. I was able to place a BENJAMIN stapling device across the base of the appendix and amputated so they could be placed into an Endo-Catch bag and pulled through the infraumbilical port site intact. All ports removed and closure began. Closure consisted of interrupted 0 Vicryl for fascial closure. Skin was closed with running 4-0 Vicryl. Steri-Strips and sterile dressings were placed. Patient was awakened, extubated, taken to recovery room stable condition. Needle, instrument, sponge counts were correct. Blood loss: 15 mL Specimen: Appendix Complications: none Post-operative Condition: stable Disposition: PACU
[2024-03-28] MEDS: OXYCODONE IR 5 MG TABLET PO (14:52)
[2024-03-28] MEDS: ACETAMINOPHEN 325 MG TABLET 975 MG PO (14:52)
[2024-03-28] MEDS: ONDANSETRON 4 MG/2 ML INJ IV (14:53)
== END 2024-03-28 15:24 | disposition home or self-care (01) ==
PROVIDERS: PCP Family Medicine; Referring Provider Surgery; Visit Provider Surgery
PROC: 0DTJ4ZZ Resection of Appendix, Percutaneous Endoscopic Approach (ICD-10-PCS; CPT 44970; principal; 2024-03-28 13:45)
DX: K35.890 Other acute appendicitis without perforation or gangrene (principal); K66.0 Peritoneal adhesions (postprocedural) (postinfection)
CPT/HCPCS: 44970; J0171; J1885; J2250; J2405; J2704; J3010